=== PATIENT | male | born 2000 | race Caucasian/White ===

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

== ENCOUNTER → 2024-07-13 | Outpatient (CLI) | payer OTHER | END | disposition home or self-care (01) | LOC: LAB 14:13 | DX: R94.31 Abnormal electrocardiogram [ECG] [EKG] (principal) ==

== ENCOUNTER 2024-08-15 15:08 | Emergency (ER) | payer OTHER ==
[~2024-08-15] VITALS: Ht 170.1 cm; Wt 65.8 kg
[2024-08-15] MEDS ORDERED: METHADONE HYDROC5 MG PO (15:22)
[2024-08-15] MEDS ORDERED: IBU600 M1 PO (17:14)
== END 2024-08-15 17:22 | disposition home or self-care (01) ==
LOC: ED 15:08
DX: M94.0 Chondrocostal junction syndrome [Tietze] (principal); Z79.899 Other long term (current) drug therapy

== ENCOUNTER 2024-12-15 11:58 | Emergency (ER) | payer OTHER ==
[~2024-12-15] VITALS: Wt 59.0 kg
[~2024-12-15 11:58] MED LIST changes: +IBU600 M1 PO; +METHADONE HYDROC5 MG PO
[2024-12-15 13:10] LABS: BASO # 0.0 10*3/uL (0.0-0.1); BASO % 0.8 % (0.0-1.0); EOS # 0.1 10*3/uL (0.0-0.4); EOS % 1.4 % (1.0-4.0); MEAN CELL VOLUME 90.1 fl (80.0-94.0); MEAN CORPUSCULAR HGB 29.6 pg (27.0-31.0); MEAN PLATELET VOLUME 9.8 fl (9.6-12.3); MONO # 0.7 10*3/uL (0.1-1.0); MONO % 13.5 % (3.0-9.0); NEUT # 2.7 10*3/uL (2.3-7.9); NEUT % 54.7 % (47.0-73.0); NUCLEATED RED BLOOD CELL 0.0 % (0.0-0.0); NUCLEATED RED BLOOD CELL 0.0 10*3/uL (0.0-0.0); PLATELET COUNT AUTOMATED 194 10*3/uL (130-400); RED CELL DISTRI WIDTH 13.2 % (0-14.5)
[2024-12-15 13:28] LABS: BUN 7 mg/dl (9-23)
== END 2024-12-15 13:39 | disposition home or self-care (01) ==
LOC: ED 11:58
PROVIDERS: Internal Medicine
DX: N50.811 Right testicular pain (principal); N50.89 Other specified disorders of the male genital organs; Z79.899 Other long term (current) drug therapy; Z96.22 Myringotomy tube(s) status; Z53.29 Procedure and treatment not carried out because of patient's decision for other reasons